=== PATIENT | male | born 1990 | race Caucasian/White ===

== ENCOUNTER 2017-07-27 22:45 | Emergency (ER) | payer SELFPAY | END 2017-07-27 22:50 | disposition left against medical advice (07) | LOC: NEDAMB 22:45 | DX: R41.82 Altered mental status, unspecified (principal); Z53.21 Procedure and treatment not carried out due to patient leaving prior to being seen by health care provider | CPT/HCPCS: 99281 ==

== ENCOUNTER 2017-10-01 04:19 | Emergency (ER) | payer SELFPAY ==
[~2017-10-01] VITALS: Ht 172.7 cm; Wt 73.0 kg
[2017-10-01 04:21] VITALS: BP 136/87; PULSE 85; RESP 12; TEMP 98; O2SAT 97
--- NOTE | 2017-10-01 05:04 | PD ---
HPI Chief Complaint: OD/ Ingestion Time Seen by Provider: 04:50 Travel History International Travel<30 days: No Contact w/Intl Traveler<30days: No Traveled to known affect area: No History of Present Illness HPI This is a 27-year-old male who presents to the emergency department having used heroin several hours ago and then spent marijuana. His friends were concerned because he was acting strangely and they called the police. Police came to the house and found the patient to be unresponsive in the administered nasal meloxicam. Patient immediately awoke and by the time EMS arrived he was back to normal. His symptoms lasted for several minutes, were constant, severe, and the patient appeared to be breathing poorly. He says that he just had 7 months clean of heroin and he relapsed today. [facility] Past Medical History Hepatitis: Yes (Hep C) Tetanus Vaccination: < 5 Years Influenza Vaccination: No Past Surgical History Surgical History: No Previous Surgery Social History Alcohol Use: No Tobacco Use: Yes Substance Use: Yes (Heroin ) Allergies-Medications (Allergen,Severity, Reaction): Coded Allergies: No Known Drug Allergies (Verified Allergy, Unknown, 10/01/17) Review of Systems Except as stated in HPI: all other systems reviewed are Neg Physical Exam Narrative GENERAL:Well appearing, no acute distress SKIN: Focused skin assessment warm and dry. HEAD: Atraumatic. Normocephalic. EYES: Pupils equal and round. No injection or drainage. ENT: Moist mucous membranes NECK: Trachea midline. CARDIOVASCULAR: Regular rate and rhythm. No murmur appreciated. RESPIRATORY: Clear to auscultation. Breath sounds equal bilaterally. GASTROINTESTINAL: Abdomen soft, non-tender, nondistended. MUSCULOSKELETAL: No obvious deformities. NEUROLOGICAL: Awake and alert. No obvious cranial nerve deficits. Moving all extremities. PSYCHIATRIC: Appropriate mood and affect; insight and judgment normal. Data Data Last Documented VS Vital Signs Date Time Temp Pulse Resp B/P (MAP) Pulse Ox O2 Delivery O2 Flow Rate FiO2 10/01/17 04:21 98.0 85 12 136/87 (103) 97 MDM Medical Decision Making Medical Screen Exam Complete: Yes Emergency Medical Condition: Yes Interpretation(s) Afebrile, no tachycardia, normotensive Differential Diagnosis Acute opiate overdose, cannabinoid overdose, hypoxia, aspiration Narrative Course This is a well-appearing 27-year-old male who presents to the emergency department following a recreational overdose of heroin. He was given Narcan in the field and since then has been awake and alert with no respiratory symptoms. He was observed in the emergency department for 2 hours and had no recurrence of somnolence or respiratory depression. Patient will be discharged home. Diagnosis Primary Impression: Opiate overdose Qualified Codes: T40.601A - Poisoning by unspecified narcotics, accidental ( unintentional), initial encounter Patient Instructions: General Instructions Additional Instructions: Follow up with Eliud Bertrand in regards to psychiatric or substance related issues at: [address] [place], [place] [id number] Med/Other Pt SpecificInfo: No Change to Meds Disposition: 01 DISCHARGE HOME Condition: Stable Mariama Sampson MD Oct 01, 2017 05:04
== END 2017-10-01 06:23 | disposition home or self-care (01) ==
LOC: NEPC 04:19
DX: T40.1X1A Poisoning by heroin, accidental (unintentional), initial encounter (principal); B19.20 Unspecified viral hepatitis C without hepatic coma; Z72.0 Tobacco use
CPT/HCPCS: 99283

== ENCOUNTER 2017-12-10 23:07 | Emergency (ER) | payer SELFPAY ==
[~2017-12-10] VITALS: Ht 172.7 cm; Wt 68.0 kg
[2017-12-10 23:20] VITALS: BP 138/80; PULSE 78; RESP 18; TEMP 97.8; O2SAT 98
[2017-12-11] MEDS ORDERED: CEPH-460 PO (00:35)
[2017-12-11] MEDS ORDERED: BACT800T5 PO (00:35)
[2017-12-11] MEDS ORDERED: CEPHALEXIN MONOHYDRATE 500 MG CAP PO ONE (00:45)
[2017-12-11] MEDS ORDERED: SULFAMETHOXAZOLE-TRIMETHOPRIM DS 800-160 MG TAB PO ONE (00:45)
--- NOTE | 2017-12-11 00:51 | PD ---
HPI Chief Complaint: Skin Problem Time Seen by Provider: 00:26 Travel History International Travel<30 days: No Contact w/Intl Traveler<30days: No Traveled to known affect area: No History of Present Illness HPI 27-year-old white male presents emergency department with complaints of a skin infection. Patient states that he has a history of IV drug abuse. He states that he had recently relapsed. He has been sober off drugs now for approximately 1 week. He had noticed multiple skin lesions from picking. He also makes note that he has had a history of a heart murmur in the past. He denies any fever or chills. No nausea vomiting. No abdominal pain. Symptoms are moderate. Exacerbated by substance abuse and picking. No alleviating factors. PFSH Past Medical History Narrative Medical IV drug abuse, heart murmur Diminished Hearing: No Hepatitis: Yes (Hep C) Tetanus Vaccination: < 5 Years Past Surgical History Surgical History: No Previous Surgery Social History Alcohol Use: No Tobacco Use: Yes (1PPD) Substance Use: Yes (HEROIN AND METH) Allergies-Medications (Allergen,Severity, Reaction): Coded Allergies: No Known Drug Allergies (Verified Allergy, Unknown, 12/10/17) Reported Meds & Prescriptions Reported Meds & Active Scripts Active Keflex (Cephalexin) 500 Mg Cap 500 Mg PO Q6H 10 Days Bactrim DS (Sulfamethoxazole-Trimethoprim) 800-160 Mg Tab 1 Tab PO BID Review of Systems Except as stated in HPI: all other systems reviewed are Neg Physical Exam Narrative GENERAL: Well-developed, well-nourished in no acute distress. Nontoxic appearing. HEAD: Normocephalic, atraumatic. EYES: Pupils equal round and reactive. Extraocular motions intact. No scleral icterus. No injection or drainage. ENT: TMs clear without erythema. The external auditory canals clear. Nose: clear . Posterior pharynx is pink and moist. No tonsillar edema or exudate. Uvula midline. Airway patent. NECK: Trachea midline.Supple, nontender, moves head freely. No central bony tenderness or spasm. CARDIOVASCULAR: Regular rate and rhythm without murmurs, gallops, or rubs. I cannot appreciate a murmur at this time. RESPIRATORY: Clear to auscultation. Breath sounds equal bilaterally. No wheezes , rales, or rhonchi. GASTROINTESTINAL: Abdomen soft, non-tender, nondistended. No hepato-splenomegaly , or palpable masses. No guarding. EXTREMITIES: No clubbing, cyanosis, or edema. No joint tenderness, effusion, or edema noted. Examination of the right hand reveals a lesion to the tip of the right index finger. It is unclear whether this is a Janeway lesion. BACK: Nontender without deformity or crepitance. No flank tenderness. Skin: Patient has multiple excoriated and picked areas with erythema and warmth. There is no fluctuance or pointing. Data Data Last Documented VS Vital Signs Date Time Temp Pulse Resp B/P (MAP) Pulse Ox O2 Delivery O2 Flow Rate FiO2 12/10/17 23:20 97.8 78 18 138/80 (99) 98 Orders Orders Blood Culture (12/11/17 00:31) Sulfamet-Trimeth Ds 800-160 Mg (Bactrim (12/11/17 00:45) Cephalexin (Keflex) (12/11/17 00:45) MDM Medical Decision Making Medical Screen Exam Complete: Yes Emergency Medical Condition: Yes Medical Record Reviewed: Yes Differential Diagnosis MDM: High Differential diagnoses: Abscess, folliculitis, cellulitis, lymphangitis, abrasion, contact dermatitis Narrative Course I do not appreciate a heart murmur at this time. I will perform 2 blood cultures, and start the patient on Bactrim and Keflex. Patient will follow up on his blood culture results. This is cellulitis, picking, IV drug abuse Diagnosis Primary Impression: Cellulitis Additional Impressions: Picking own skin IV drug abuse Patient Instructions: General Instructions Additional Instructions: Rest. Elevation. Warm compresses remove the packing in two days. Daily wound care with soap, water and Neosporin. Three Advil every 6 hours. Bactrim DS and Keflex. Follow-up with a primary care doctor in 2-3 days. Follow-up on your blood culture results. Return to the ER for any problems. Med/Other Pt SpecificInfo: Prescription(s) given Scripts Cephalexin (Keflex) 500 Mg Cap 500 MG PO Q6H for Infection for 10 Days, #40 CAP 0 Refills Prov: Abdi Miller MD 12/11/17 Sulfamethoxazole-Trimethoprim (Bactrim DS) 800-160 Mg Tab 1 TAB PO BID for Infection, #20 TAB 0 Refills Prov: Abdi Miller MD 12/11/17 Disposition: 01 DISCHARGE HOME Condition: Stable Stephen Stack Dec 11, 2017 00:51
== END 2017-12-11 01:15 | disposition home or self-care (01) ==
LOC: NEPD 23:07
DX: L03.90 Cellulitis, unspecified (principal); F19.10 Other psychoactive substance abuse, uncomplicated; F17.200 Nicotine dependence, unspecified, uncomplicated
CPT/HCPCS: 86403; 87040; 87077; 87186; 87205; 99283

== ENCOUNTER 2017-12-15 11:31 | Emergency (ER) | payer SELFPAY ==
[~2017-12-15] VITALS: Ht 172.7 cm; Wt 72.0 kg
[~2017-12-15 11:31] MED LIST: BACT800T5 PO; CEPH-460 PO
[2017-12-15 11:36] VITALS: BP 154/82; PULSE 95; RESP 18; TEMP 99; O2SAT 98
--- NOTE | 2017-12-15 12:25 | PD ---
HPI Chief Complaint: Abnormal Results Time Seen by Provider: 12:13 Travel History International Travel<30 days: No Contact w/Intl Traveler<30days: No Traveled to known affect area: No History of Present Illness HPI Patient is a 19-year-old male presenting to the emergency department for evaluation of abnormal labs. Patient states he was called twice to return to emergency department for reevaluation due to positive blood cultures. Patient denies any fever, chills, headache, increased pain, warmth, swelling. He states that the infection in his finger and neck appear to be resolving. He reports compliance with Bactrim and Keflex. Symptom onset was gradual, symptoms are improving. Symptom severity is mild, patient denies any pain. PFSH Past Medical History Diminished Hearing: No Hepatitis: Yes (Hep C) Social History Alcohol Use: No Tobacco Use: Yes (1PPD) Substance Use: Yes (HEROIN AND METH) Allergies-Medications (Allergen,Severity, Reaction): Coded Allergies: No Known Drug Allergies (Verified Allergy, Unknown, 12/15/17) Reported Meds & Prescriptions Reported Meds & Active Scripts Active Keflex (Cephalexin) 500 Mg Cap 500 Mg PO Q6H 10 Days Bactrim DS (Sulfamethoxazole-Trimethoprim) 800-160 Mg Tab 1 Tab PO BID Review of Systems Except as stated in HPI: all other systems reviewed are Neg Skin: Positive Lumps, Positive Lesions Physical Exam Narrative GENERAL: Thin, well-developed, alert male. Presenting in no acute distress. SKIN: Warm and dry. 2 cm area of fluctuance to the nape of patient's neck posteriorly. No significant erythema or induration. Nontender to palpation. HEAD: Atraumatic. Normocephalic. EYES: Pupils equal and round. No scleral icterus. No injection or drainage. ENT: No nasal bleeding or discharge. Mucous membranes pink and moist. NECK: Trachea midline. No JVD. CARDIOVASCULAR: Regular rate and rhythm. RESPIRATORY: No accessory muscle use. Clear to auscultation. Breath sounds equal bilaterally. GASTROINTESTINAL: Abdomen soft, non-tender, nondistended. Hepatic and splenic margins not palpable. MUSCULOSKELETAL: Extremities without clubbing, cyanosis, or edema. No obvious deformities. NEUROLOGICAL: Awake and alert. No obvious cranial nerve deficits. Motor grossly within normal limits. Five out of 5 muscle strength in the arms and legs. Normal speech. PSYCHIATRIC: Appropriate mood and affect; insight and judgment normal. Data Data Last Documented VS Vital Signs Date Time Temp Pulse Resp B/P (MAP) Pulse Ox O2 Delivery O2 Flow Rate FiO2 12/15/17 12:17 18 99 Room Air 12/15/17 11:36 99.0 95 154/82 (106) Orders Orders Wound Culture And Gram Stain (12/15/17 12:16) Lidocai-Epi 1%-1:100,000 Inj (Xylocaine- (12/15/17 12:30) Clindamycin (Cleocin) (12/15/17 12:30) MDM Medical Decision Making Medical Screen Exam Complete: Yes Emergency Medical Condition: Yes Medical Record Reviewed: Yes Interpretation(s) Vital Signs Date Time Temp Pulse Resp B/P (MAP) Pulse Ox O2 Delivery O2 Flow Rate FiO2 12/15/17 12:17 18 99 Room Air 12/15/17 11:36 99.0 95 18 154/82 (106) 98 Differential Diagnosis Sepsis versus positive blood cultures versus normal examination versus abscess versus cellulitis versus other Narrative Course Patient presented due to positive blood cultures. Blood cultures drawn on 11 December were positive for MRSA. They are susceptible to Bactrim which patient reports compliance with. He is afebrile, his vital signs are stable. Discussed with my attending physician. Due to appropriate treatment previously as well as patient appearing well with no fevers, or signs of sepsis no new labs will be performed. Please see procedure report for I&D. Culture obtained and pending. Patient will be started on clindamycin, he is to continue Bactrim. He was given strict return precautions. He verbalized understanding of these instructions. Patient stable for discharge. Procedures Procedure Narrative After the risks and benefits were discussed the following procedure was performed: INCISION AND DRAINAGE OF ABSCESS: The area was prepped and was sterilely draped. A subcutaneous wheal of 1 % Xylocaine with a total number 1 mL was used to anesthetize the area. The area was properly anesthetized. A number 11 scalpel was used to make a 1-cm incision across the area of the abscess. Cultures were obtained. The abscess was drained an irrigated with normal saline. Sterile dressing applied. Patient tolerated procedure well. Diagnosis Primary Impression: Abscess Referrals: Primary Care Physician Patient Instructions: Abscess (ED), Abscess Incision and Drainage (DC), General Instructions Additional Instructions: Continue Bactrim as previously prescribed Start clindamycin Discontinue Keflex Keep area clean and dry, cover with Band-Aid or similar dressing until well healed Return to emergency department for any new or worsening symptoms Follow-up with a primary doctor or at the [facility] Med/Other Pt SpecificInfo: Prescription(s) given Scripts Clindamycin (Clindamycin) 150 Mg Cap 300 MG PO Q8HR for Infection for 7 Days, CAP 0 Refills Prov: Lorin Dean 12/15/17 Disposition: 01 DISCHARGE HOME Condition: Stable Lorin Dean Dec 15, 2017 12:25
[2017-12-15] MEDS ORDERED: LIDOCAINE 1%/EPINEPHrine 1:100,000 SOLN 20 ML VIAL INFIL ONE (12:30)
[2017-12-15] MEDS ORDERED: CLINDAMYCIN 150 MG CAP PO ONE (12:30)
[2017-12-15] MEDS ORDERED: CLIN150C14 PO (12:40)
--- NOTE | 2017-12-15 12:40 | PD ---
Physical Exam Date Seen by Provider: Dec 15, 2017 Narrative This patient presents to us as a call back because of a positive blood culture. Blood cultures positive for MRSA. The patient was treated initially with Bactrim and has been compliant with the Bactrim. The MRSA is sensitive to Bactrim. Data Data Last Documented VS Vital Signs Date Time Temp Pulse Resp B/P (MAP) Pulse Ox O2 Delivery O2 Flow Rate FiO2 12/15/17 12:17 18 99 Room Air 12/15/17 11:36 99.0 95 154/82 (106) Orders Orders Wound Culture And Gram Stain (12/15/17 12:16) Lidocai-Epi 1%-1:100,000 Inj (Xylocaine- (12/15/17 12:30) Clindamycin (Cleocin) (12/15/17 12:30) MDM Supervised Visit with PRISCILLA: Yes Narrative Course I, Dr. Joseph, have reviewed the advance practice practitioner's documentation and am in agreement, met with the patient face to face, made the diagnosis, and the medical decision making was done by me. *My assessment and Findings: He does have an abscess on the upper back which has now been drained by Lorin Randhawa NP. Please see Lorin Randhawa NP's note for results of laboratory and radiographic evaluation, ED course, final diagnosis and disposition Brittnee Lea MD Dec 15, 2017 12:40
== END 2017-12-15 12:57 | disposition home or self-care (01) ==
LOC: NEPC 11:31
DX: L02.212 Cutaneous abscess of back [any part, except buttock and flank] (principal); B95.62 Methicillin resistant Staphylococcus aureus infection as the cause of diseases classified elsewhere; R78.81 Bacteremia
CPT/HCPCS: 10060; 86403; 87070; 87186; 87205